=== PATIENT | female | born 1940 | race Caucasian/White ===

== ENCOUNTER 2022-09-29 14:25 | Inpatient (IN) ==
[2022-09-29] MEDS ORDERED: LIDOCAINE 5% 1 PATCH TD STA (14:37)
[2022-09-29] MEDS ORDERED: SODIUM CHLORIDE 0.9% 500 ML IV STA (14:37)
[2022-09-29] MEDS ORDERED: ACETAMINOPHEN 1,000 MG/100 ML VIAL IV STA (14:37)
--- NOTE | 2022-09-29 14:41 | Emergency Department Note ---
Impression & Plan Hyponatremia, Fall, Lumbar compression fracture, Osteoporosis ED Provider Note NAME: FRANK JAIN AGE: 81 SEX: F : 1940 ARRIVES VIA: Ambulance INFORMANT: Patient, ED PROVIDER(S): Ricky Beck MD CHIEF COMPLAINT: Shortness of breath, fall, rib and back pain MEDICAL DECISION MAKING: Patient presents with the above symptoms after fall that occurred on Tuesday. Next IV was established blood work was obtained along with an EKG and troponin. Chest and rib series ordered along with thoracic plain films. The patient does have a known history of prior compression fracture with no reproducible pain today but had complained of pain before. The patient's blood work shows a normal white counts mild anemia hemoglobin of 10.8 which is not grossly changed for comparison. Platelet count is unremarkable. The patient's initial sodium is 120. Kidney function otherwise unremarkable. The patient did have urine and serum awesome's added as well as urine electrolytes. No obvious rib fracture per radiology. There was concern that the patient did have an deformity of L1 compression fracture. Prior /Outside records reviewed: None Differential diagnosis: Contusion, sprain, strain, fracture, reactive airway disease, pneumonia, pneumothorax, COPD, CHF, infections, cardiac ischemia, pulmonary embolism, muscu loskeletal, gastrointestinal, as well as other pathologies. Diagnostics, as interpreted by me: ECG: Normal sinus rhythm, rate of 88, wide QRS, right bundle bess block pattern, T wave inversion anteriorly and laterally. No obvious ST elevations. T WI also noted in lead III Cardiac monitoring: An order was placed for continuous cardiac monitoring. The monitor shows a rate of 88 with sinus rhythm. Patient was placed on pulse oximetry Medical decision rules: none Imaging studies: See below HPI: Patient presents due to concern for feeling short of breath. The patient relates that she believes this may be secondary to a fall that occurred on Tuesday. Patient states that she was dusting and when she was dusting she was turning around and states that she does not do this well and teacher did somewhat backward and struck the left side of her back and rib area. Patient states that she has been taking half a tramadol. Patient was concerned as she felt short of breath today. No prior history of heart or lung disease. Patient denies any chest pains. Patient states that she does feel improved compared to earlier today. Patient denies any leg swelling or calf pain. No history of DVT or PE. Patient states that she cannot take Tylenol due to upset stomach. Patient does not take any blood thinners. Patient denies any LOC head strike or neck pain after the fall. Patient also relates that she did slightly strike her left upper extremity PAST MEDICAL HISTORY: See Below PAST SURGICAL HISTORY: See Below SOCIAL HISTORY: See Below HOME MEDICATIONS: See Below ALLERGIES: See Below VITALS: See Below PHYSICAL EXAMINATION: GENERAL: NAD, non-toxic. Wearing glasses. EYE EXAM: Normal conjunctiva. PERRL, no anisocoria and EOM's grossly intact w/o pain. NECK: Supple, no nuchal rigidity, no adenopathy, non-tender. No signs of meningismus. FROM of the neck with good chin to chest and neck extension. No stridor. LUNGS: Clear to auscultation. Normal chest wall mechanics. HEART: NSR, no MRG. ABDOMEN: Abdomen soft, non-tender, no masses, no rebound or guarding. BACK: No reproducible thoracic or lumbar midline TTP, mild discomfort to the left mid posterior rib area. No overlying skin changes SKIN: No rashes and no bruising. UPPER EXTREMITIES: Posterior aspect of the proximal forearm with abrasion but without laceration otherwise upper extremities are grossly normal. LOWER EXTREMITIES: Grossly normal, no edema. No TTP or deformity. NEURO EXAM: A&O x3, cranial nerves II-XII grossly intact, normal speech, moves all 4 extremities. Past Med/Surg History Medical History Chronic bundle branch block GERD (gastroesophageal reflux disease) Lumbar compression fracture Osteopenia Osteoporosis Thoracic compression fracture Surgical History H/O nasal septoplasty Hx of tonsillectomy Family History Other Diabetes Hypertension Social History Smoking Status: Never smoker Hx Alcohol Use: No Hx Substance Use: No Feels Safe at Home: Yes Allergies Allergies Allergy/AdvReac Type Severity Reaction Status Date / Time albuterol Allergy Severe Swelling Verified 09/29/22 15:13 of Lip/Tongue/Throat BEES Allergy Severe ANAPHYLAXIS Uncoded 09/29/22 15:13 Home Meds Home Medications Medication Instructions Recorded Confirmed denosumab 60 mg/mL subcutaneous 0 mg subcut .EVERY 6 MONTHS 03/09/19 09/29/22 syringe (Prolia) omeprazole 10 mg capsule,delayed 10 mg PO QAM 03/09/19 09/29/22 release calcium carbonate 600 mg-vitamin 1 tab PO DAILY 09/29/22 09/29/22 D3 10 mcg (400 unit) tablet (Calcium 600 + D(3)) cetirizine 10 mg tablet 10 mg PO DAILY 09/29/22 09/29/22 cholecalciferol (vitamin D3) 25 25 mcg PO QAM 09/29/22 09/29/22 mcg (1,000 unit) tablet (Vitamin D3) epinephrine 0.3 mg/0.3 mL 0.3 ml IM UD PRN Anaphylaxis 09/29/22 09/29/22 injection, auto-injector tramadol 50 mg tablet 25 mg PO DAILY PRN Pain, Severe 09/29/22 09/29/22 Results & Data (ED) Vital Signs Vital Signs - 24 hr 09/29/22 14:37 09/29/22 14:37 09/29/22 14:37 Temperature 37 C Temperature Source Oral Pulse Rate 88 Pulse Rate [Apical] 80 Pulse Rhythm [Apical] Pulse Strength [Apical] Respiratory Rate 18 16 Respiratory Effort / Characteristics Respiratory Depth Normal Respiratory Pattern Blood Pressure 164/69 H Blood Pressure [Left Arm] Blood Pressure Mean 100 Blood Pressure Mean [Left Arm] Blood Pressure Position [Left Arm] Pulse Oximetry 96 96 96 Oxygen Delivery Method Nasal Cannula Room Air Room Air Sepsis Recent Fever Within 48 Hours No Sepsis New/Unexplained Change in Mental Status No Sepsis Action Taken by Nursing No Action Required 09/29/22 16:37 09/29/22 17:04 Temperature Temperature Source Pulse Rate 87 Pulse Rate [Apical] 83 Pulse Rhythm [Apical] Regular Pulse Strength [Apical] Normal Respiratory Rate 16 Respiratory Effort / Characteristics Non-Labored Spontaneous Respiratory Depth Normal Respiratory Pattern Regular Blood Pressure Blood Pressure [Left Arm] 164/69 H Blood Pressure Mean Blood Pressure Mean [Left Arm] 100 Blood Pressure Position [Left Arm] Lying Pulse Oximetry 97 Oxygen Delivery Method Room Air Sepsis Recent Fever Within 48 Hours Sepsis New/Unexplained Change in Mental Status Sepsis Action Taken by Longterm Medications Current Medication List: was personally reviewed by me Laboratory Data Attestation: I reviewed the patient's lab results. 09/29/22 14:53 09/29/22 19:24 Lab Results 09/29/22 09/29/22 09/29/22 Range/Units 14:53 14:53 14:53 WBC 7.56 (4.8-10.8) K/ul RBC 3.38 L (4.20-5.40) M/uL Hgb 10.8 L (12.0-16.0) g/dl Hct 29.8 L (37.0-47.0) % MCV 88.2 (80.0-100.0) fL MCH 32.0 (25.0-34.0) pg MCHC 36.2 H (32.0-36.0) g/dL RDW Std Deviation 37.5 (36.4-46.3) fL RDW Coeff of Radha 11.7 (11.5-14.5) % Plt Count 311 (130-400) K/uL MPV 9.4 (9.4-12.4) fL Immature Gran % (Auto) 0.4 % Neut % (Auto) 73.4 % Lymph % (Auto) 14.4 % [place] % (Auto) 11.4 % Eos % (Auto) 0.3 % Baso % (Auto) 0.1 % Neut # (Auto) 5.55 (1.40-6.50) K/uL Lymph # (Auto) 1.09 L (1.2-3.4) K/uL [place] # (Auto) 0.86 H (0.11-0.59) K/uL Eos # (Auto) 0.02 (0-0.50) K/uL Baso # (Auto) 0.01 (0-0.2) K/uL Immature Gran # (Auto) 0.03 (0.01-0.20) K/uL PT 11.0 (9.0-12.0) Seconds INR 1.0 (0.9-1.1) APTT 28.3 (21.0-31.0) Seconds PTT Ratio 1.0 Sodium 120 L (136-145) mmol/L Potassium 3.9 (3.5-5.1) mmol/L Chloride 89 L (98-107) mmol/L Carbon Dioxide 23 (21-32) mmol/L Anion Gap 8 (3-11) BUN 14 (6-23) mg/dl Creatinine 0.45 L (0.6-1.2) mg/dl Est Cr Clr Drug Dosing 62.6 ml/min Est GFR ( Amer) 107.4 ml/min Est GFR (Non-Af Amer) 92.7 ml/min BUN/Creatinine Ratio 31.1 H (10-20) Glucose 104 H (70-99(Fasting)) mg/dl Osmolality (280-300) mOsm/kg Calcium 8.6 (8.6-10.3) mg/dl Magnesium 1.8 (1.7-2.4) mg/dl Total Bilirubin 0.7 (0.2-1.0) mg/dl AST 25 (13-39) U/L ALT 15 (7-52) U/L Alkaline Phosphatase 67 (34-104) U/L Troponin I High Sens (0-14) pg/ml Total Protein 6.7 (6.0-8.3) gm/dl Albumin 3.9 (3.4-5.0) gm/dl Globulin 2.8 (2.5-4.0) gm/dl Albumin/Globulin Ratio 1.4 (0.9-2) TSH (0.300-4.500) uIu/ml Urine Color Urine Appearance (Clear) Urine pH (4.5-7.5) Ur Specific [place] (1.000-1.030) Urine Protein (Negative) Urine Glucose (UA) (Negative) Urine Ketones (Negative) Urine Blood (Negative) Urine Nitrite (Negative) Urine Bilirubin (Negative) Urine Urobilinogen (Negative) Ur Leukocyte Esterase (Negative) Urine Osmolality (500-800) mOsm/kg Urine Sodium mmol/L Urine Potassium mmol/L Urine Chloride mmol/L SARS-CoV-2, RNA, NAAT (NEGATIVE) 09/29/22 09/29/22 09/29/22 Range/Units 14:53 14:53 15:30 WBC (4.8-10.8) K/ul RBC (4.20-5.40) M/uL Hgb (12.0-16.0) g/dl Hct (37.0-47.0) % MCV (80.0-100.0) fL MCH (25.0-34.0) pg MCHC (32.0-36.0) g/dL RDW Std Deviation (36.4-46.3) fL RDW Coeff of Radha (11.5-14.5) % Plt Count (130-400) K/uL MPV (9.4-12.4) fL Immature Gran % (Auto) % Neut % (Auto) % Lymph % (Auto) % [place] % (Auto) % Eos % (Auto) % Baso % (Auto) % Neut # (Auto) (1.40-6.50) K/uL Lymph # (Auto) (1.2-3.4) K/uL [place] # (Auto) (0.11-0.59) K/uL Eos # (Auto) (0-0.50) K/uL Baso # (Auto) (0-0.2) K/uL Immature Gran # (Auto) (0.01-0.20) K/uL PT (9.0-12.0) Seconds INR (0.9-1.1) APTT (21.0-31.0) Seconds PTT Ratio Sodium (136-145) mmol/L Potassium (3.5-5.1) mmol/L Chloride (98-107) mmol/L Carbon Dioxide (21-32) mmol/L Anion Gap (3-11) BUN (6-23) mg/dl Creatinine (0.6-1.2) mg/dl Est Cr Clr Drug Dosing ml/min Est GFR ( Amer) ml/min Est GFR (Non-Af Amer) ml/min BUN/Creatinine Ratio (10-20) Glucose (70-99(Fasting)) mg/dl Osmolality 252 L (280-300) mOsm/kg Calcium (8.6-10.3) mg/dl Magnesium (1.7-2.4) mg/dl Total Bilirubin (0.2-1.0) mg/dl AST (13-39) U/L ALT (7-52) U/L Alkaline Phosphatase (34-104) U/L Troponin I High Sens 8.5 (0-14) pg/ml Total Protein (6.0-8.3) gm/dl Albumin (3.4-5.0) gm/dl Globulin (2.5-4.0) gm/dl Albumin/Globulin Ratio (0.9-2) TSH 2.573 (0.300-4.500) uIu/ml Urine Color Urine Appearance (Clear) Urine pH (4.5-7.5) Ur Specific [place] (1.000-1.030) Urine Protein (Negative) Urine Glucose (UA) (Negative) Urine Ketones (Negative) Urine Blood (Negative) Urine Nitrite (Negative) Urine Bilirubin (Negative) Urine Urobilinogen (Negative) Ur Leukocyte Esterase (Negative) Urine Osmolality (500-800) mOsm/kg Urine Sodium mmol/L Urine Potassium mmol/L Urine Chloride mmol/L SARS-CoV-2, RNA, NAAT (NEGATIVE) 09/29/22 09/29/22 09/29/22 Range/Units 17:02 17:02 17:02 WBC (4.8-10.8) K/ul RBC (4.20-5.40) M/uL Hgb (12.0-16.0) g/dl Hct (37.0-47.0) % MCV (80.0-100.0) fL MCH (25.0-34.0) pg MCHC (32.0-36.0) g/dL RDW Std Deviation (36.4-46.3) fL RDW Coeff of Radha (11.5-14.5) % Plt Count (130-400) K/uL MPV (9.4-12.4) fL Immature Gran % (Auto) % Neut % (Auto) % Lymph % (Auto) % [place] % (Auto) % Eos % (Auto) % Baso % (Auto) % Neut # (Auto) (1.40-6.50) K/uL Lymph # (Auto) (1.2-3.4) K/uL [place] # (Auto) (0.11-0.59) K/uL Eos # (Auto) (0-0.50) K/uL Baso # (Auto) (0-0.2) K/uL Immature Gran # (Auto) (0.01-0.20) K/uL PT (9.0-12.0) Seconds INR (0.9-1.1) APTT (21.0-31.0) Seconds PTT Ratio Sodium (136-145) mmol/L Potassium (3.5-5.1) mmol/L Chloride (98-107) mmol/L Carbon Dioxide (21-32) mmol/L Anion Gap (3-11) BUN (6-23) mg/dl Creatinine (0.6-1.2) mg/dl Est Cr Clr Drug Dosing ml/min Est GFR ( Amer) ml/min Est GFR (Non-Af Amer) ml/min BUN/Creatinine Ratio (10-20) Glucose (70-99(Fasting)) mg/dl Osmolality (280-300) mOsm/kg Calcium (8.6-10.3) mg/dl Magnesium (1.7-2.4) mg/dl Total Bilirubin (0.2-1.0) mg/dl AST (13-39) U/L ALT (7-52) U/L Alkaline Phosphatase (34-104) U/L Troponin I High Sens (0-14) pg/ml Total Protein (6.0-8.3) gm/dl Albumin (3.4-5.0) gm/dl Globulin (2.5-4.0) gm/dl Albumin/Globulin Ratio (0.9-2) TSH (0.300-4.500) uIu/ml Urine Color Yellow Urine Appearance Clear (Clear) Urine pH 7.5 (4.5-7.5) Ur Specific [place] 1.010 (1.000-1.030) Urine Protein Negative (Negative) Urine Glucose (UA) Negative (Negative) Urine Ketones 1+ H (Negative) Urine Blood Negative (Negative) Urine Nitrite Negative (Negative) Urine Bilirubin Negative (Negative) Urine Urobilinogen Negative (Negative) Ur Leukocyte Esterase Negative (Negative) Urine Osmolality 339 L (500-800) mOsm/kg Urine Sodium mmol/L Urine Potassium mmol/L Urine Chloride mmol/L SARS-CoV-2, RNA, NAAT NEGATIVE (NEGATIVE) 09/29/22 Range/Units 17:02 WBC (4.8-10.8) K/ul RBC (4.20-5.40) M/uL Hgb (12.0-16.0) g/dl Hct (37.0-47.0) % MCV (80.0-100.0) fL MCH (25.0-34.0) pg MCHC (32.0-36.0) g/dL RDW Std Deviation (36.4-46.3) fL RDW Coeff of Radha (11.5-14.5) % Plt Count (130-400) K/uL MPV (9.4-12.4) fL Immature Gran % (Auto) % Neut % (Auto) % Lymph % (Auto) % [place] % (Auto) % Eos % (Auto) % Baso % (Auto) % Neut # (Auto) (1.40-6.50) K/uL Lymph # (Auto) (1.2-3.4) K/uL [place] # (Auto) (0.11-0.59) K/uL Eos # (Auto) (0-0.50) K/uL Baso # (Auto) (0-0.2) K/uL Immature Gran # (Auto) (0.01-0.20) K/uL PT (9.0-12.0) Seconds INR (0.9-1.1) APTT (21.0-31.0) Seconds PTT Ratio Sodium (136-145) mmol/L Potassium (3.5-5.1) mmol/L Chloride (98-107) mmol/L Carbon Dioxide (21-32) mmol/L Anion Gap (3-11) BUN (6-23) mg/dl Creatinine (0.6-1.2) mg/dl Est Cr Clr Drug Dosing ml/min Est GFR ( Amer) ml/min Est GFR (Non-Af Amer) ml/min BUN/Creatinine Ratio (10-20) Glucose (70-99(Fasting)) mg/dl Osmolality (280-300) mOsm/kg Calcium (8.6-10.3) mg/dl Magnesium (1.7-2.4) mg/dl Total Bilirubin (0.2-1.0) mg/dl AST (13-39) U/L ALT (7-52) U/L Alkaline Phosphatase (34-104) U/L Troponin I High Sens (0-14) pg/ml Total Protein (6.0-8.3) gm/dl Albumin (3.4-5.0) gm/dl Globulin (2.5-4.0) gm/dl Albumin/Globulin Ratio (0.9-2) TSH (0.300-4.500) uIu/ml Urine Color Urine Appearance (Clear) Urine pH (4.5-7.5) Ur Specific [place] (1.000-1.030) Urine Protein (Negative) Urine Glucose (UA) (Negative) Urine Ketones (Negative) Urine Blood (Negative) Urine Nitrite (Negative) Urine Bilirubin (Negative) Urine Urobilinogen (Negative) Ur Leukocyte Esterase (Negative) Urine Osmolality (500-800) mOsm/kg Urine Sodium 65 mmol/L Urine Potassium 32.5 mmol/L Urine Chloride 63 mmol/L SARS-CoV-2, RNA, NAAT (NEGATIVE) Administered Medications Discontinued Medications Sodium Chloride (Nss) 500 mls @ 999 mls/hr IV .Q31M STA Stop: 09/29/22 15:07 Last Infusion: 09/29/22 16:36 Dose: 0 mls/hr Documented By: Admin: 09/29/22 15:06 Dose: 999 mls/hr Documented By: KV Acetaminophen (Ofirmev) 1,000 mg in 100 mls @ 400 mls/hr IV NOW STA Stop: 09/29/22 14:51 Last Infusion: 09/29/22 15:23 Dose: 0 mls/hr Documented By: Admin: 09/29/22 15:06 Dose: 400 mls/hr Documented By: KV Lidocaine (Lidocaine 5% 1 Patch) 1 patch TD NOW STA Stop: 09/29/22 14:38 Last Admin: 09/29/22 15:06 Dose: 1 patch Documented By: KV Imaging Data Radiologist's Impression: Ribs w/Chest X-Ray 09/29/22 14:37 XR ribs LT min 2V w CXR1V CLINICAL HISTORY: right posterior rib pain, fall Tuesday TECHNIQUE: 3 views of the right ribs were obtained. Single frontal view of the chest was obtained. Comparison: None available at the time of this dictation. FINDINGS: No fractures are seen. The chest wall and soft tissues are normal. Degenerative changes are seen in the spine. The cardiomediastinal silhouette is normal. The lungs are clear. No evidence of pleural effusion or pneumothorax. IMPRESSION: No evidence of acute fracture or other acute abnormalities in the visualized portions of the chest. ACT 112: Negative or not required by law. Electronically signed by: Rogers Cheung M.D. 09/29/2022 4:09 PM Thoracic Spine X-Ray 09/29/22 14:37 XR thoracic spine 3V routine CLINICAL HISTORY: prior back frx, fall, no pain today TECHNIQUE: 3 views of the thoracic spine were obtained. Comparison: Comparison is made to thoracic spine radiographs 03/11/[address] thoracic spine 03/09/2019 FINDINGS: Vertebral plana of T8 and T11 are unchanged. There is increased compression deformity of L1 compared to prior exam. IMPRESSION: Increased compression deformity of L1, age indeterminate. Correlation with point tenderness is recommended. ACT 112: Negative or not required by law. Electronically signed by: Rogers Cheung M.D. 09/29/2022 4:34 PM Discharge Plan Visit Data Chief Complaint: Fall Stated Complaint: FALL ED Provider: Ricky Beck Discharge Problem: Hyponatremia, Fall, Lumbar compression fracture, Osteoporosis Patient Disposition: Admitted As Inpatient Discharge Instructions Interventions: ED Discharge Assessment Last Done: 09/29/22 19:33
[2022-09-29 15:25] LABS: Basophils # (auto) 0.01 K/uL (0-0.2); Basophils % (auto) 0.1 %; Eosinophils # (auto) 0.02 K/uL (0-0.50); Eosinophils % (auto) 0.3 %; Hematocrit (blood only) 29.8 % (37.0-47.0); Hemoglobin 10.8 g/dl (12.0-16.0); Immature Granulocytes # (auto) 0.03 K/uL (0.01-0.20); Immature Granulocytes % (auto) 0.4 %; Lymphocytes # (auto) 1.09 K/uL (1.2-3.4); Lymphocytes % (auto) 14.4 %; Mean Corpuscular Hgb Conc 36.2 g/dL (32.0-36.0); Mean Corpuscular Volume 88.2 fL (80.0-100.0); Mean Platelet Volume 9.4 fL (9.4-12.4); Monocytes # (auto) 0.86 K/uL (0.11-0.59); Monocytes % (auto) 11.4 %; Neutrophils # (auto) 5.55 K/uL (1.40-6.50); Neutrophils % (auto) 73.4 %; Platelet Count 311 K/uL (130-400); RDW Coefficient of Variation 11.7 % (11.5-14.5); RDW Standard Deviation 37.5 fL (36.4-46.3); Red Blood Count 3.38 M/uL (4.20-5.40); White Blood Count 7.56 K/ul (4.8-10.8)
[2022-09-29 15:39] LABS: Partial Thromboplastin Time 28.3 Seconds (21.0-31.0)
[2022-09-29 15:44] LABS: Albumin Level 3.9 gm/dl (3.4-5.0); Bilirubin,Total 0.7 mg/dl (0.2-1.0); Calcium 8.6 mg/dl (8.6-10.3); Magnesium 1.8 mg/dl (1.7-2.4); Potassium 3.9 mmol/L (3.5-5.1)
[2022-09-29 15:50] LABS: Albumin Globulin Ratio 1.4 (0.9-2); BUN Creatinine Ratio 31.1 (10-20); Creatinine Clr Calc Pharmacy 62.6 ml/min; Est GFR (African American) 107.4 ml/min; Est GFR (Non-African American) 92.7 ml/min; Globulin 2.8 gm/dl (2.5-4.0); Total Protein 6.7 gm/dl (6.0-8.3)
--- NOTE | 2022-09-29 16:11 | XRay Report ---
XR ribs LT min 2V w CXR1V CLINICAL HISTORY: right posterior rib pain, fall Tuesday TECHNIQUE: 3 views of the right ribs were obtained. Single frontal view of the chest was obtained. Comparison: None available at the time of this dictation. FINDINGS: No fractures are seen. The chest wall and soft tissues are normal. Degenerative changes are seen in the spine. The cardiomediastinal silhouette is normal. The lungs are clear. No evidence of pleural effusion or p neumothorax. IMPRESSION: No evidence of acute fracture or other acute abnormalities in the visualized portions of the chest. ACT 112: Negative or not required by law. Electronically signed by: Rogers Cheung M.D. 09/29/2022 4:09 PM
--- NOTE | 2022-09-29 16:35 | XRay Report ---
XR thoracic spine 3V routine CLINICAL HISTORY: prior back frx, fall, no pain today TECHNIQUE: 3 views of the thoracic spine were obtained. Comparison: Comparison is made to thoracic spine radiographs 03/11/[address] thoracic spine 019 FINDINGS: Vertebral plana of T8 and T11 are unchanged. There is increased compression deformity of L1 compared to prior exam. IMPRESSION: Increased compression deformity of L1, age indeterminate. Correlation with point tenderness is recomm ended. ACT 112: Negative or not required by law. Electronically signed by: Rogers Cheung M.D. 09/29/2022 4:34 PM
--- NOTE | 2022-09-29 17:21 | History & Physical Report ---
Date of Service September 29, 2022 Assessment & Plan (1) Hyponatremia: Plan: Patient is 81-year-old female with PMH osteoporosis, thoracic compression fracture, GERD presented to ER with complaint of fall and left rib pain x 4 days. Reports generalized weakness x several weeks Today in ER Na: 120. Sodium 131 in 2019, (2019 is last sodium labs that can be found in outpatient records.) Urine osmolality: 252, urine osmolality: 339, urine sodium: 65 In ER given 500ml NSS TSH pending Random cortisol pending Repeat BMP with Na: 124 Nephrology consult (2) Fall: Plan: Fall 4 days ago. 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 Thoracic and L-spine x-ray on 05/27/2015 showed T8, L3 chronic compression fractures, age-indeterminate compression fractures T11 and T12 Thoracic spine XRAY: T8 and T11 compression fractures are unchanged. There is increased compression deformity of L1 compared to prior exam. No spinous process tenderness on exam. Suspect chronic compression fractures (5) Osteoporosis: Plan: Follow with rheumatology On Prolia (6) GERD (gastroesophageal reflux disease): Plan: Continue PPI DVT Prophylaxis Heparin SQ DNR/DNI as per discussion with pt Follows with Dr Alycia Tang for routine care Pt was seen and care coordinated with Dr Hooper. See addendum I spent a total of 80 minutes reviewing notes, outpatient records, labs, medication, coordinating, documenting and providing care for this patient excluding time spent in the performance of separately billed services. History of Present Illness Chief Complaint: Fall Primary Care Provider: Alycia Tang DO Patient is 81-year-old female with PMH osteoporosis, thoracic compression fracture, GERD presented to ER with complaint of fall and left rib pain x 4 days. Patient states 4 days ago was dusting when she lost her balance causing her to fall backwards hitting her left posterior/lateral ribs on a dresser. Since has had pain to left posterior ribs that is aggravated with movement and inspiration. Patient states that hurts to take a deep breath. Denies any shortness of breath at rest or exertion, just hurts when she takes a deep breath. She states for the past several weeks has noticed increased weakness. Typically she is able to walk without a walker however the past several weeks has needed a walker secondary to generalized weakness. Denies any other falls other than the one 4 days ago. She reports she has been having intermittent headaches. Patient states drinks 16-24 ounces of water, 2 cups coffee and sometimes 32 ounces of tea daily. She states she eats 3 meals a day however reports eating small amounts. She receives Meals on Wheels for lunch and eats entire portion and typically eats a [employer] frozen dinner for evening meal. Denies fever/chills, diaphoresis, N/V/D/C, dizziness, syncope, vision changes, neck pain, orthopnea, palpitations, cough, sore throat, choking, otalgia, rhinorrhea, abdominal pain, paresthesias, back pain, extremity edema, rashes, urinary symptoms. Allergies Allergy/AdvReac Type Severity Reaction Status Date / Time albuterol Allergy Severe Swelling Verified 09/29/22 15:13 of Lip/Tongue/Throat BEES Allergy Severe ANAPHYLAXIS Uncoded 09/29/22 15:13 Home Medications Medication Instructions Recorded Confirmed Type denosumab 60 mg/mL subcutaneous 0 mg subcut .EVERY 6 MONTHS 03/09/19 09/29/22 History syringe (Prolia) omeprazole 10 mg capsule,delayed 10 mg PO QAM 03/09/19 09/29/22 History release calcium carbonate 600 mg-vitamin 1 tab PO DAILY 09/29/22 09/29/22 History D3 10 mcg (400 unit) tablet (Calcium 600 + D(3)) cetirizine 10 mg tablet 10 mg PO DAILY 09/29/22 09/29/22 History cholecalciferol (vitamin D3) 25 25 mcg PO QAM 09/29/22 09/29/22 History mcg (1,000 unit) tablet (Vitamin D3) epinephrine 0.3 mg/0.3 mL 0.3 ml IM UD PRN Anaphylaxis 09/29/22 09/29/22 History injection, auto-injector tramadol 50 mg tablet 25 mg PO DAILY PRN Pain, Severe 09/29/22 09/29/22 History Past Med/Surg History Medical History (Updated 09/29/22 @ 18:20 by Lisset Salgado PA-C) Chronic bundle branch block GERD (gastroesophageal reflux disease) Lumbar compression fracture Osteopenia Osteoporosis Thoracic compression fracture Surgical History H/O nasal septoplasty Hx of tonsillectomy Family History Other Diabetes Hypertension Social History Smoking Status: Never smoker Hx Alcohol Use: No Hx Substance Use: No Feels Safe at Home: Yes Review of Systems Review of Systems: All systems reviewed & are unremarkable except as noted in HPI & below Physical Exam Physical Exam: General: no distress, thin elderly female Head: normocephalic, atraumatic Eyes: PERRL, EOM's intact, conjunctiva non-injected, anicteric ENT: normal inspection external ears, nose, mucous membranes mildly dry Neck: supple, trachea midline Lungs: clear, no respiratory distress, no wheezing/rhonchi/rales CV: RRR, no murmur, no JVD, no pretibial edema Chest wall: +tenderness to palpation left posterior/lateral ribs inferior to scapula region Back: no ecchymosis, no spinous tenderness to palpation, no paraspinous tenderness to palpation Abd: normal BS, soft, non-tender Ext: no cyanosis, no calf tenderness Neuro: A&O x 3, no focal deficits noted, normal affect Skin: warm, dry, +abrasions to left arm Results & Data Results & Data Vital Signs (Past 12 Hours) Vital Signs Temp Pulse Pulse Resp BP BP Pulse Ox 09/29/22 17:04 83 16 164/69 H 97 09/29/22 16:37 87 09/29/22 14:37 96 09/29/22 14:37 80 16 96 09/29/22 14:37 37 C 88 18 164/69 H 96 O2 Del Method 09/29/22 17:04 Room Air 09/29/22 16:37 09/29/22 14:37 Room Air 09/29/22 14:37 Room Air 09/29/22 14:37 Nasal Cannula Laboratory Results Short CBC 09/29/22 Range/Units 14:53 WBC 7.56 (4.8-10.8) K/ul Hgb 10.8 L (12.0-16.0) g/dl Hct 29.8 L (37.0-47.0) % Plt Count 311 (130-400) K/uL BMP 09/29/22 14:53 Sodium 120 L Potassium 3.9 Chloride 89 L Carbon Dioxide 23 BUN 14 Creatinine 0.45 L Glucose 104 H Calcium 8.6 Liver Function 09/29/22 Range/Units 14:53 Total Bilirubin 0.7 (0.2-1.0) mg/dl AST 25 (13-39) U/L ALT 15 (7-52) U/L Alkaline Phosphatase 67 (34-104) U/L Albumin 3.9 (3.4-5.0) gm/dl Urine 09/29/22 Range/Units 17:02 Urine Color Yellow Urine Appearance Clear (Clear) Urine pH 7.5 (4.5-7.5) Ur Specific Coden 1.010 (1.000-1.030) Urine Protein Negative (Negative) Urine Glucose (UA) Negative (Negative) Diagnostic Findings Ribs w/Chest X-Ray 09/29/22 14:37 XR ribs LT min 2V w CXR1V CLINICAL HISTORY: right posterior rib pain, fall Tuesday TECHNIQUE: 3 views of the right ribs were obtained. Single frontal view of the chest was obtained. Comparison: None available at the time of this dictation. FINDINGS: No fractures are seen. The chest wall and soft tissues are normal. Degenerative changes are seen in the spine. The cardiomediastinal silhouette is normal. The lungs are clear. No evidence of pleural effusion or pneumothorax. IMPRESSION: No evidence of acute fracture or other acute abnormalities in the visualized portions of the chest. ACT 112: Negative or not required by law. Electronically signed by: Rogers Cheung M.D. 09/29/2022 4:09 PM Thoracic Spine X-Ray 09/29/22 14:37 XR thoracic spine 3V routine CLINICAL HISTORY: prior back frx, fall, no pain today TECHNIQUE: 3 views of the thoracic spine were obtained. Comparison: Comparison is made to thoracic spine radiographs 03/11/[address] thoracic spine 03/09/2019 FINDINGS: Vertebral plana of T8 and T11 are unchanged. There is increased compression deformity of L1 compared to prior exam. IMPRESSION: Increased compression deformity of L1, age indeterminate. Correlation with point tenderness is recommended. ACT 112: Negative or not required by law. Electronically signed by: Rogers Cheung M.D. 09/29/2022 4:34 PM Supervising Physician Co-Signing Physician Notes I have seen and examined the patient and have discussed the case with the provider above. I agree with the assessment and plan as stated with the following exceptions. The patient is an 81-year-old female with osteoporosis on Prolia who presented secondary to left rib pain x4 days. X-rays reveal no evidence of fracture however she did not have a CT scan which can be more sensitive. She has significant rib pain in the left posterior area which is improved with a lidocaine patch and IV Tylenol. However she reports a history of allergy to Tylenol where she gets significant nausea. She did state that she has been having nausea since coming in and she feels it may be the acetaminophen. She reports eating and drinking well and denies any issues with dehydration. She denies any vomiting or diarrhea. She takes no diuretics. After her fall she reports that her pain has been significantly uncontrolled. She also reports being called by [facility] and her doctor's office telling her that tramadol was an opiate and the dangers of becoming addicted to this. She has been on tramadol for over a year and dependent on this for chronic back pain. She reports feeling scared about being on an opiate at this point and states that it was not really even working well. She does also report having severe nausea in the ambulance ride over, stating she felt that she was going to throw up at that time but did not. On physical exam she appears comfortable and in no acute distress. She is thin and frail and elderly but is speaking in full sentences and is oriented. She has significant tenderness to palpation of left posterior rib area where lidocaine patch is present. She reports feeling improved from before but still has significant pain. Physical exam is otherwise unremarkable. Work-up includes a CBC which reveals anemia with an H&H of 10.8 and 30 consistent with previous labs. Sodium is 120 with a BUN of 10 and a creatinine of 0.55 and a normal GFR. Urine studies were ordered and there is no evidence of infection, urine osmolality is low around 339, urine sodium is 65. EKG reveals inverted T waves in lateral leads. There is no ST elevation or depression and she does have a history of right bundle branch block. Highly sensitive troponin was negative. 1. 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 Hypertension 3. Uncontrolled rib pain status post fall 4. Anemia 5. Abnormal EKG The patient is not overtly dehydrated, does not report or have clinical studies in support of psychogenic polydipsia but she does have uncontrolled pain from her recent trauma to her rib. Her uncontrolled blood pressure is also in support of this. It appears the lidocaine patch is helping but she reports an intolerance to acetaminophen. Toradol is ordered as needed but we will try an oral ibuprofen overnight to see if this helps her pain. She is averse to opia campbell from a theoretical perspective and is not interested in trying alternatives at this time. Additional pain options may include gabapentin at a low dose titrated to effect. She is aware that she will end up having a couple of months of pain that is uncomfortable given the location. For her blood pressure she is not taking any antihypertensives at home and this is likely situational. We will add a low-dose Norvasc for the time being. Anemia appears to be at baseline. Regarding her EKG, given her age cardiac disease is always a consideration. She is not reporting any chest pain or classic ACS symptoms. We will plan to repeat EKG and trend cardiac troponin which was are additionally negative overnight. Repeat sodium is ordered at 01 100. Her sodium has trended from 120-124. After half a liter of saline given in the ER. We will continue to let her drink and eat without additional IV fluids at this time and trend sodium. Goal sodium level by tomorrow morning will be 126. Will consider starting dextrose if this rises higher than that overnight. DO Rufus
[2022-09-29 17:22] LABS: Appearance Urine Clear (Clear); Bilirubin Urine Negative (Negative); Blood Urine Negative (Negative); Color Urine Yellow; Glucose Urine UA Negative (Negative); Ketones Urine 1+ (Negative); Leukocyte Esterase Urine Negative (Negative); Nitrite Urine Negative (Negative); Protein Urine Negative (Negative); Urobilinogen Urine Negative (Negative); pH Urine 7.5 (4.5-7.5)
[2022-09-29 17:38] LABS: Urine Potassium 32.5 mmol/L
[2022-09-29 20:00] LABS: Calcium 8.6 mg/dl (8.6-10.3); Potassium 3.5 mmol/L (3.5-5.1)
[2022-09-29 20:05] LABS: BUN Creatinine Ratio 18.2 (10-20); Creatinine Clr Calc Pharmacy 51.2 ml/min; Est GFR (African American) 100.5 ml/min; Est GFR (Non-African American) 86.7 ml/min
[2022-09-29] MEDS ORDERED: ACETAMINOPHEN 325 MG TAB PO PRN (20:27)
[2022-09-29] MEDS ORDERED: ONDANSETRON INJ 2 MG/ML 2 ML VIAL IV PRN (20:27)
[2022-09-29] MEDS ORDERED: POLYETHYLENE (MIRALAX) 17 GM PACK PO PRN (20:27)
[2022-09-29] MEDS ORDERED: traMADol HCL 50 MG TABLET PO PRN (20:27)
[2022-09-29] MEDS ORDERED: IBUPROFEN 800 MG TAB PO STA (20:58)
[2022-09-29] MEDS ORDERED: KETOROLAC TROMETHAMINE 15 MG/ML VIAL IV PRN (21:00)
[2022-09-29] MEDS ORDERED: amLODIPine BESYLATE 5 MG TAB PO ONE (21:45)
[2022-09-29] MEDS ORDERED: ACETAMINOPHEN 325 MG TAB PO SCH (22:00)
[2022-09-29] MEDS: HEPARIN SOD 5,000 UNIT/0.5 ML VIAL SQ SCH (22:53)
[2022-09-30 00:59] LABS: Calcium 8.6 mg/dl (8.6-10.3); Potassium 3.6 mmol/L (3.5-5.1)
[2022-09-30 01:05] LABS: BUN Creatinine Ratio 21.4 (10-20); Creatinine Clr Calc Pharmacy 61.8 ml/min; Est GFR (African American) 109.9 ml/min; Est GFR (Non-African American) 94.8 ml/min
[2022-09-30 01:10] LABS: Troponin I High Sensitivity 11.5 pg/ml (0-14)
[2022-09-30 07:45] LABS: Hematocrit (blood only) 31.8 % (37.0-47.0); Hemoglobin 11.6 g/dl (12.0-16.0); Mean Corpuscular Hemoglobin 31.9 pg (25.0-34.0); Mean Corpuscular Hgb Conc 36.5 g/dL (32.0-36.0); Mean Corpuscular Volume 87.4 fL (80.0-100.0); Mean Platelet Volume 9.6 fL (9.4-12.4); Platelet Count 369 K/uL (130-400); RDW Coefficient of Variation 11.9 % (11.5-14.5); RDW Standard Deviation 38.5 fL (36.4-46.3); Red Blood Count 3.64 M/uL (4.20-5.40); White Blood Count 7.04 K/ul (4.8-10.8)
[2022-09-30 08:06] LABS: Calcium 8.3 mg/dl (8.6-10.3); Potassium 3.4 mmol/L (3.5-5.1)
[2022-09-30 08:12] LABS: Creatinine Clr Calc Pharmacy 63.4 ml/min; Est GFR (African American) 110.7 ml/min; Est GFR (Non-African American) 95.5 ml/min
[2022-09-30] MEDS ORDERED: POTASSIUM CHLORIDE CRTAB 20 MEQ TABCR PO STA (08:20)
[2022-09-30] MEDS: CETIRIZINE HCL 10 MG TABLET PO SCH (08:26)
[2022-09-30] MEDS: CHOLECALCIFEROL 1,000 UNITS 25 MCG TAB PO SCH (08:28)
[2022-09-30] MEDS: HEPARIN SOD 5,000 UNIT/0.5 ML VIAL SQ SCH ×2 (08:28→21:40)
[2022-09-30] MEDS: PANTOprazole 40 MG TAB PO SCH (08:28)
[2022-09-30] MEDS: LIDOCAINE 5% 1 PATCH TD SCH (08:29)
[2022-09-30] MEDS: CALCIUM 600MG + VIT D 400 IU TAB PO SCH (08:29)
[2022-09-30] MEDS: amLODIPine BESYLATE 5 MG TAB PO SCH (10:00)
--- NOTE | 2022-09-30 11:22 | Consultation Report ---
NEPHROLOGY CONSULTATION NOTE REASON FOR CONSULTATION: Hyponatremia. HISTORY OF PRESENT ILLNESS: The patient is an 81-year-old female with history of osteoporosis on Pro feliberto injection and GERD, but otherwise no major medical problems, presented to the hospital yesterday after episode of fall and left rib pain. Fall apparently happened almost 4 days ago. Workup done in the Emergency Department did not show any new fracture as such, but she does have pain in her left r ib area. Sodium was found to be low at 120 and since being admitted, she received normal saline and w ith that sodium went up to 127 after which a normal saline has been stopped. Repeat sodium was also 127. At home, the patient has a somewhat low oral intake of food, but proportionately higher fluid i ntake between coffee, tea and water. Other than some pain in the rib area on the left side, she feel s asymptomatic. Denies any nausea, vomiting, chest pain, shortness of breath, diarrhea, orthopnea, c hange in appetite. She was not on any type of diuretics at home. At this time, she is getting NSAIDs with Toradol. Blood work done for hyponatremia showed a urine osmolality of 339, urine sodium 65. PAST MEDICAL AND SURGICAL HISTORY: Includes osteoporosis with compression fracture on chronic Prolia injection every 6 months, omeprazole, calcium and vitamin D, tramadol as needed. Chronic bundle bra nch block, compression fracture with osteoporosis, nasal septoplasty, tonsillectomy. ALLERGIES: List reviewed. FAMILY HISTORY: Negative for renal disease or dialysis. SOCIAL HISTORY: Never smoked. , lives with her . REVIEW OF SYSTEMS: As detailed in HPI; unless stated otherwise, 12 systems reviewed and negative. PHYSICAL EXAMINATION: GENERAL: Elderly white female who appears to be thin and frail. She will only weighs 45 kilos. CHEST: Bilaterally clear to auscultation. CARDIOVASCULAR: S1 and S2, regular. ABDOMEN: Soft, nontender. EXTREMITIES: Show no edema. VITAL SIGNS: Most recent vital signs show blood pressure 158/70, pulse rate 79, temperature 36.4, 94 % on room air. LABORATORY TEST: Sodium on admission was 120, most recent is 127. She had a serum sodium of 131 fou r years ago, but no other blood work since then. Cortisol was 18, albumin 3.9. Hemoglobin 11.6, nathanael telet count 369. Urine osmolality 339. Urine sodium 65. Chest x-ray did not show any evidence of acute fracture and chest was otherwise unremarkable. ASSESSMENT AND PLAN: An 81-year-old female who is very thin and frail with prior history of hyponatr emia, now admitted after an episode of fall at home. I have been consulted for hyponatremia. Hyponatremia: This appears to be acute on chronic, even in 2019, looks like she had a serum sodium o f 131. On admission, she had a serum sodium of 120, which went up to 127, fairly easily with just us e of normal saline, even after normal saline has been stopped sodium has not dropped so far. The von ology of hyponatremia is probably multifactorial with a combination of disproportionately higher flui d intake, somewhat lower solid food intake and some degree of urinary dilution problem. The urine os molality of 339 in the setting of serum sodium of 120 is inappropriate and would qualify as SIADH. S he does not appear to be significantly volume depleted. However, serum sodium did improve easily wit h the use of normal saline. We should repeat the BMP again later this afternoon and then in the morn ing. I expect her sodium to be in the 125+ range. If that happens, she is stable for discharge from renal standpoint. Further recommendation for discharge will be done at the time of discharge. Fluid restriction: 1500 mL per day. Thank you very much for the consult. Job ID: [id number]
--- NOTE | 2022-09-30 11:39 | Hospitalist Progress Note ---
Date of Service September 30, 2022 Assessment & Plan (1) Hyponatremia: Plan: 81-year-old female with PMH osteoporosis, thoracic compression fracture, GERD presented to ER with complaint of fall and left rib pain x 4 days. Reports generalized weakness x several weeks On presentation, Na: 120. Urine osmolality: 252, urine osmolality: 339, urine sodium: 65 Got 500ml NSS in ER TSH is normal Etiology likely multifactorial - excessive fluid intake compared to solid food Nephro eval appreciated Na is up to 127 today Fluid restriction. Recheck BMP this afternoon (2) Fall: Plan: Fall 4 days prior to presentation. 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 There is increased compression deformity of L1 compared to prior exam. No point tenderness on exam Chronic compression fractures (5) Osteoporosis: Plan: Follow with rheumatology On Prolia (6) GERD (gastroesophageal reflux disease): Plan: Continue PPI DVT Prophylaxis Heparin SQ DNR/DNI as per discussion with pt Follows with Dr Alycia Tang for routine care I spent a total of 50 minutes coordinating, documenting and providing care for this patient excluding time spent in performance of separately billed services Admission and Anticipated Discharge Date Admission Date: September 29, 2022 Subjective Patient seen and examined Reports left flank pain that started after fall is well controlled with lidocaine patch Denied pain anywhere else Reported she may have missed a step and fallen at home Denied any loss of consciousness Denied CP, SOB, COLMENARES, palpitation Denied nausea, vomiting, diarrhea, abd pain Denied fevers, chills Physical Exam Constitutional: + well hydrated; no acute distress Elderly woman Eyes: PERRL, conjunctivae normal, anicteric sclerae ENMT: external ear and nose normal, oropharynx normal Respiratory: normal respiratory effort, lungs clear to auscultation Cardiovascular: Rate/Rhythm: regular rate and regular rhythm S1 S2 Gastrointestinal (Abdomen): normal bowel sounds, soft, nontender, no hepatosplenomegaly Musculoskeletal: No pedal edema Neurologic: PERRL, EOMI, accommodation nl, no face palsy, no dysarthria Psychiatric: A+Ox3, euthymic affect Results & Data Results & Data Vital Signs (Past 12 Hours) Vital Signs Temp Pulse Pulse Resp BP Pulse Ox O2 Del Method 09/30/22 11:02 36.5 C 85 20 150/61 H 96 Room Air 09/30/22 10:15 Room Air 09/30/22 07:42 36.4 C L 79 20 158/70 H 94 Room Air 09/30/22 07:14 81 09/30/22 03:47 36.6 C 80 18 148/55 H 94 Room Air Laboratory Results Abnormal lab results 09/29/22 09/29/22 09/29/22 Range/Units 14:53 14:53 14:53 RBC 3.38 L (4.20-5.40) M/uL Hgb 10.8 L (12.0-16.0) g/dl Hct 29.8 L (37.0-47.0) % MCHC 36.2 H (32.0-36.0) g/dL Lymph # (Auto) 1.09 L (1.2-3.4) K/uL Barry # (Auto) 0.86 H (0.11-0.59) K/uL Sodium 120 L (136-145) mmol/L Potassium (3.5-5.1) mmol/L Chloride 89 L (98-107) mmol/L Creatinine 0.45 L (0.6-1.2) mg/dl BUN/Creatinine Ratio 31.1 H (10-20) Glucose 104 H (70-99(Fasting)) mg/dl Osmolality 252 L (280-300) mOsm/kg Calcium (8.6-10.3) mg/dl Urine Ketones (Negative) Urine Osmolality (500-800) mOsm/kg 09/29/22 09/29/22 09/29/22 Range/Units 17:02 17:02 19:24 RBC (4.20-5.40) M/uL Hgb (12.0-16.0) g/dl Hct (37.0-47.0) % MCHC (32.0-36.0) g/dL Lymph # (Auto) (1.2-3.4) K/uL Barry # (Auto) (0.11-0.59) K/uL Sodium 124 L (136-145) mmol/L Potassium (3.5-5.1) mmol/L Chloride 94 L (98-107) mmol/L Creatinine 0.55 L (0.6-1.2) mg/dl BUN/Creatinine Ratio (10-20) Glucose 149 H (70-99(Fasting)) mg/dl Osmolality (280-300) mOsm/kg Calcium (8.6-10.3) mg/dl Urine Ketones 1+ H (Negative) Urine Osmolality 339 L (500-800) mOsm/kg 09/30/22 09/30/22 09/30/22 Range/Units 00:38 06:49 06:49 RBC 3.64 L (4.20-5.40) M/uL Hgb 11.6 L (12.0-16.0) g/dl Hct 31.8 L (37.0-47.0) % MCHC 36.5 H (32.0-36.0) g/dL Lymph # (Auto) (1.2-3.4) K/uL Barry # (Auto) (0.11-0.59) K/uL Sodium 127 L 127 L (136-145) mmol/L Potassium 3.4 L (3.5-5.1) mmol/L Chloride 97 L 96 L (98-107) mmol/L Creatinine 0.42 L 0.41 L (0.6-1.2) mg/dl BUN/Creatinine Ratio 21.4 H 22.0 H (10-20) Glucose 102 H (70-99(Fasting)) mg/dl Osmolality (280-300) mOsm/kg Calcium 8.3 L (8.6-10.3) mg/dl Urine Ketones (Negative) Urine Osmolality (500-800) mOsm/kg (2) Fall Encounter type: initial encounter Qualified Code(s): W19.XXXA - Unspecified fall, initial encounter (3) Lumbar compression fracture Encounter type: initial encounter Lumbar vertebra fracture level: L1 Qualified Code(s): S32.010A - Wedge compression fracture of first lumbar vertebra, initial encounter for closed fracture (5) Osteoporosis Osteoporosis type: unspecified Presence of current pathological fracture: unspecified Qualified Code(s): M81.0 - Age-related osteoporosis without current pathological fracture
[2022-09-30 16:09] LABS: BUN Creatinine Ratio 15.9 (10-20); Calcium 9.1 mg/dl (8.6-10.3); Creatinine Clr Calc Pharmacy 41.2 ml/min; Est GFR (African American) 96.1 ml/min; Est GFR (Non-African American) 82.9 ml/min; Potassium 4.4 mmol/L (3.5-5.1)
--- NOTE | 2022-09-30 22:26 | Electrocardiogram Report ---
Test Reason : Blood Pressure : / mmHG Vent. Rate : 088 BPM Atrial Rate : 088 BPM P-R Int : 158 ms QRS Dur : 122 ms QT Int : 376 ms P-R-T Axes : 058 039 023 degrees QTc Int : 454 ms Normal sinus rhythm with sinus arrhythmia Right bundle branch block Abnormal ECG When compared with ECG of 09-MAR-2019 14:48, Premature atrial complexes are no longer Present T wave inversion more evident in Anterolateral leads Confirmed by Rashad Dinero ([id number]) on 09/30/2022 10:26:37 PM Referred By: Confirmed By:Rashad Dinero
[2022-10-01] MEDS: LIDOCAINE 5% 1 PATCH TD SCH (05:28)
--- NOTE | 2022-10-01 05:38 | Electrocardiogram Report ---
Test Reason : Blood Pressure : / mmHG Vent. Rate : 085 BPM Atrial Rate : 085 BPM P-R Int : 146 ms QRS Dur : 118 ms QT Int : 388 ms P-R-T Axes : 069 029 020 degrees QTc Int : 461 ms Sinus rhythm with Premature atrial complexes Right bundle branch block Abnormal ECG When compared with ECG of 29-SEP-2022 14:48, Premature atrial complexes are now Present Confirmed by Rashad Dienro ([id number]) on 10/01/2022 5:38:01 AM Referred By: REFERRED SELF Confirmed By:Rashad Dinero
[2022-10-01 06:56] LABS: Basophils # (auto) 0.02 K/uL (0-0.2); Basophils % (auto) 0.3 %; Eosinophils # (auto) 0.12 K/uL (0-0.50); Eosinophils % (auto) 1.6 %; Hemoglobin 11.5 g/dl (12.0-16.0); Immature Granulocytes # (auto) 0.03 K/uL (0.01-0.20); Immature Granulocytes % (auto) 0.4 %; Lymphocytes # (auto) 1.28 K/uL (1.2-3.4); Mean Corpuscular Hemoglobin 31.9 pg (25.0-34.0); Mean Corpuscular Hgb Conc 35.9 g/dL (32.0-36.0); Mean Corpuscular Volume 88.6 fL (80.0-100.0); Mean Platelet Volume 8.9 fL (9.4-12.4); Monocytes % (auto) 14.6 %; Neutrophils % (auto) 66.1 %; Platelet Count 381 K/uL (130-400); RDW Standard Deviation 39.1 fL (36.4-46.3); Red Blood Count 3.61 M/uL (4.20-5.40); White Blood Count 7.55 K/ul (4.8-10.8)
[2022-10-01 07:10] LABS: Calcium 8.6 mg/dl (8.6-10.3); Creatinine Clr Calc Pharmacy 51.9 ml/min; Est GFR (African American) 103.7 ml/min; Est GFR (Non-African American) 89.5 ml/min; Potassium 3.9 mmol/L (3.5-5.1)
[2022-10-01 07:58] VITALS: O2SAT 95
[2022-10-01] MEDS: HEPARIN SOD 5,000 UNIT/0.5 ML VIAL SQ SCH (09:49)
[2022-10-01] MEDS: amLODIPine BESYLATE 5 MG TAB PO SCH (09:50)
[2022-10-01] MEDS: CHOLECALCIFEROL 1,000 UNITS 25 MCG TAB PO SCH (09:50)
[2022-10-01] MEDS: CALCIUM 600MG + VIT D 400 IU TAB PO SCH (09:50)
[2022-10-01] MEDS: PANTOprazole 40 MG TAB PO SCH (09:50)
[2022-10-01] MEDS: CETIRIZINE HCL 10 MG TABLET PO SCH (09:50)
--- NOTE | 2022-10-01 10:19 | Nephrology Progress Note ---
Date of Service October 01, 2022 Assessment & Plan Admission and Anticipated Discharge Date Admission Date: September 29, 2022 Subjective S--no new issues. Has Pain PHYSICAL EXAMINATION: GENERAL: Elderly white female who appears to be thin and frail. She will only weighs 45 kilos. CHEST: Bilaterally clear to auscultation. CARDIOVASCULAR: S1 and S2, regular. ABDOMEN: Soft, nontender. EXTREMITIES: Show no edema. VITAL SIGNS: Most recent vital signs show blood pressure 158/70, pulse rate 79, temperature 36.4, 94% on room air. LABORATORY TEST: Sodium on admission was 120, most recent is 129. Chest x-ray did not show any evidence of acute fracture and chest was otherwise unremarkable. ASSESSMENT AND PLAN: An 81-year-old female who is very thin and frail with prior history of hyponatremia, now admitted after an episode of fall at home. I have been consulted for hyponatremia. Hyponatremia: This appears to be acute on chronic, even in 2019, looks like she had a serum sodium of 131. Current Hyponatremia initially manage with NS alone. 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 Ok to discharge. She will need follow up with nephrology preferably next week. BP is already highish so no salt tab. encourage higher protein intake and solid food intake. FFR of 1200 ml per day. Results & Data Vital Signs (Past 12 Hours) Vital Signs Temp Pulse Resp BP BP Pulse Ox O2 Del Method 10/01/22 07:58 36.7 C 94 H 20 145/72 H 95 Room Air 10/01/22 03:25 36.5 C 77 18 123/72 94 Room Air 09/30/22 23:11 36.7 C 86 16 115/69 94 Room Air
[2022-10-01 11:30] VITALS: PULSE 94; TEMP 98.4
--- NOTE | 2022-10-01 12:18 | Discharge Summary ---
Date of Service October 01, 2022 Admission HPI Per Admitting Provider Patient is 81-year-old female with PMH osteoporosis, thoracic compression fracture, GERD presented to ER with complaint of fall and left rib pain x 4 days. Patient states 4 days ago was dusting when she lost her balance causing her to fall backwards hitting her left posterior/lateral ribs on a dresser. Since has had pain to left posterior ribs that is aggravated with movement and inspiration. Patient states that hurts to take a deep breath. Denies any shortness of breath at rest or exertion, just hurts when she takes a deep breath. She states for the past several weeks has noticed increased weakness. Typically she is able to walk without a walker however the past several weeks has needed a walker secondary to generalized weakness. Denies any other falls other than the one 4 days ago. She reports she has been having intermittent headaches. Patient states drinks 16-24 ounces of water, 2 cups coffee and sometimes 32 ounces of tea daily. She states she eats 3 meals a day however reports eating small amounts. She receives Meals on Wheels for lunch and eats entire portion and typically eats a [employer] frozen dinner for evening meal. Denies fever/chills, diaphoresis, N/V/D/C, dizziness, syncope, vision changes, neck pain, orthopnea, palpitations, cough, sore throat, choking, otalgia, rhinorrhea, abdominal pain, paresthesias, back pain, extremity edema, rashes, urinary symptoms. Admission Exam Per Admitting Provider General: no distress, thin elderly female Head: normocephalic, atraumatic Eyes: PERRL, EOM's intact, conjunctiva non-injected, anicteric ENT: normal inspection external ears, nose, mucous membranes mildly dry Neck: supple, trachea midline Lungs: clear, no respiratory distress, no wheezing/rhonchi/rales CV: RRR, no murmur, no JVD, no pretibial edema Chest wall: +tenderness to palpation left posterior/lateral ribs inferior to scapula region Back: no ecchymosis, no spinous tenderness to palpation, no paraspinous tenderness to palpation Abd: normal BS, soft, non-tender Ext: no cyanosis, no calf tenderness Neuro: A&O x 3, no focal deficits noted, normal affect Skin: warm, dry, +abrasions to left arm Principal Diagnosis Fall Hyponatremia L1 compression fracture Hypertension Discharge Exam Constitutional + well hydrated; no acute distress Eyes PERRL, conjunctivae normal, anicteric sclerae ENMT external ear and nose normal, oropharynx normal Respiratory normal respiratory effort, lungs clear to auscultation Cardiovascular Rate/Rhythm: regular rate and regular rhythm S1 S2 Gastrointestinal (Abdomen) normal bowel sounds, soft, nontender, no hepatosplenomegaly Musculoskeletal no cyanosis or clubbing, extremities motor strength 5/5 No pedal edema No spinal tenderness Neurologic PERRL, EOMI, accommodation nl, no face palsy, no dysarthria Psychiatric A+Ox3, euthymic affect Discharge Data Allergies Allergy/AdvReac Type Severity Reaction Status Date / Time albuterol Allergy Severe Swelling Verified 09/29/22 15:13 of Lip/Tongue/Throat BEES Allergy Severe ANAPHYLAXIS Uncoded 09/29/22 15:13 Consultations 09/29/22 17:16 ED Decision to Admit Stat 09/29/22 20:27 Consult Nephrology Routine Hospital Course (1) Hyponatremia: 81-year-old female with PMH osteoporosis, thoracic compression fracture, GERD presented to ER with complaint of fall and left rib pain x 4 days. Reports generalized weakness x several weeks On presentation, Na: 120. Urine osmolality: 252, urine osmolality: 339, urine sodium: 65 Got 500ml NSS in ER TSH is normal Etiology likely multifactorial - excessive fluid intake compared to solid food Nephrology evaluated Na improved to 129 today Encouraged high protein diet, more solid food Fluid restriction 1200ml/day (2) Fall: Fall 4 days prior to presentation. Pain to left posterior ribs Rib/CXR: No evidence of acute fracture or other acute abnormalities in the visualized portions of the chest Patient did not want tylenol. Stated severe GI symptoms to it Uses tramadol at home. Advised to use judiciously Gets good relief from lidocaine patch. 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 There is increased compression deformity of L1 compared to prior exam. No point tenderness on exam Chronic compression fractures (5) Osteoporosis: Follow with rheumatology On Prolia (6) GERD (gastroesophageal reflux disease): Continue PPI Total Time Total Time Spent Total Time Spent (In Minutes): 35 Total Time Includes: Examination of the Patient, Discharge Planning and Medication Reconciliation Discharge Plan Discharge Items Patient Disposition: Home - Home Health Services Reason For Visit: HYPONATREMIA Discharge Diagnosis: Fall Hyponatremia L1 compression fracture Hypertension Activity: Resume your previous activity Activity Comment: Use rolling walker Non-emergency contact: Primary Care Provider Call non-emergency contact if: you have any medication questions and your symptoms worsen Follow-up/Referrals: Alycia Tang, [Primary Care Provider] - Diet: Regular Fluids: 1200ml (5 cups) Addtl Attending Provider Instructions: Mrs Peterson You came to the hospital after a fall. You were evaluated and noted to have low sodium levels as well. This is improved. Please adhere to diet as we discussed- high protein diet and solid food intake, fluid restriction to 1200ml per day. Please ensure follow up with your Primary Doctor. You can use lidocaine patch for the back pain with judicious use of your home tramadol. You were started on amlodipine 5mg daily for persistently elevated blood pressure. It was a pleasure taking care of you. Pending Studies at Discharge: No Stand-Alone Forms: My [facility], Smoking Cessation Medications and DC Order Prescriptions: New amlodipine [Norvasc] 5 mg Tablet 5 mg PO QAM Qty: 30 0RF lidocaine 5 % Adhesive Patch,Medicated 1 patch transdermal QAM Qty: 15 0RF Continued omeprazole 10 mg capsule,delayed release(DR/EC) 10 mg PO QAM Prolia 60 mg/mL Syringe 0 mg subcut .EVERY 6 MONTHS epinephrine 0.3 mg/0.3 mL auto-injector 0.3 ml IM UD PRN (Reason: Anaphylaxis) Rx Instructions: for severe reaction place orange end against outer thigh press firmly hold in place for 10 seconds and go to emergency room tramadol 50 mg tablet 25 mg PO DAILY PRN (Reason: Pain, Severe) cholecalciferol (vitamin D3) [Vitamin D3] 25 mcg (1,000 unit) Tablet 25 mcg PO QAM calcium carbonate-vitamin D3 [Calcium 600 + D(3)] 600 mg-10 mcg (400 unit) Tablet 1 tab PO DAILY cetirizine 10 mg tablet 10 mg PO DAILY Discharge Orders: Discharge Order (Routine); Ordered 10/01/22 Ordered By: Cristin Ball Admission Data Admit Date/Time: 09/29/22 17:27 Attending Provider: Cristin Ball I. Admit Provider: Margoth Hooper Primary Care Provider: Alycia Tang Other Providers: Margoth Hooper ; Armida Persaud ; [facility] Other Interventions: Discharge Summary Assessment (RN) Last Done: 10/01/22 13:24
[2022-10-01 13:25] VITALS: BP 123/72
== END 2022-10-01 14:17 | disposition home health service (06) | DRG 641 ==
LOC: ED 14:25 → SUATTDRO 17:27 → 2N 17:27